=== PATIENT | male | born 1930 | race Caucasian/White ===

== ENCOUNTER 2016-03-12 12:22 | Emergency (ER) | payer MEDICARE, BC ==
[~2016-03-12 12:22] MED LIST: ASPIRIN E.C. 8181 MG PO; ATENOLOL25 MG PO; CIALIS20 MG PO; DOCUSATE SODIUM1 TA3 PO; LASIX20 M1 PO; OMEPRAZOLE D/R20 MG PO
[2016-03-12] MEDS ORDERED: NORCO 325 MG-51 TA1 PO (14:05)
== END 2016-03-12 14:20 | disposition home or self-care (01) ==
LOC: ED 12:22
DX: M25.561 Pain in right knee (principal); M54.5 Low back pain; M19.90 Unspecified osteoarthritis, unspecified site

== ENCOUNTER 2016-06-25 10:28 | Emergency (ER) | payer MEDICARE, BC ==
[~2016-06-25] VITALS: Ht 170.2 cm; Wt 77.3 kg
[~2016-06-25 10:28] MED LIST changes: +NORCO 325 MG-51 TA1 PO
[2016-06-25 12:14] VITALS: BP 127/67
== END 2016-06-25 12:15 | disposition home or self-care (01) ==
LOC: ED 10:28
DX: R55 Syncope and collapse (principal); R51 Headache; R11.0 Nausea; I10 Essential (primary) hypertension; Z85.850 Personal history of malignant neoplasm of thyroid; Z85.3 Personal history of malignant neoplasm of breast; Z79.82 Long term (current) use of aspirin; E11.8 Type 2 diabetes mellitus with unspecified complications; Z79.84 Long term (current) use of oral hypoglycemic drugs; E03.9 Hypothyroidism, unspecified; E78.5 Hyperlipidemia, unspecified

== ENCOUNTER → 2016-09-20 | Outpatient (CLI) | payer MEDICARE, BC | LOC: RAD 19:09 | DX: M25.571 Pain in right ankle and joints of right foot (principal); R07.81 Pleurodynia; W18.30XA Fall on same level, unspecified, initial encounter ==

== ENCOUNTER 2017-03-06 10:43 | Emergency (ER) | payer MEDICARE, BC ==
[~2017-03-06] VITALS: Ht 167.6 cm; Wt 72.7 kg
[2017-03-06 11:19] LABS: EOS # 0.2 (0.04-0.40); EOS % 2.7 % (0.0-4.0); LYMPH# 1.1 (1.50-4.00); MEAN CELL VOLUME 89 fl (78-100); MEAN CORPUSCULAR HEMOGLOBIN 28 pg (27-31); MEAN CORPUSCULAR HGB CONC 32 g/dL (33-37); MEAN PLATELET VOLUME 9.2 fl (7.4-10.4); MONO # 0.3 (0.20-0.80); NEU # 4.5 (1.40-6.50); PLATELET COUNT 307 K/mm3 (130-400); RED CELL DISTRIBUTION WIDTH 16.4 % (11.5-14.5)
[2017-03-06 11:30] LABS: ALBUMIN 4.4 g/dL (3.5-5.0); BUN/CREATININE RATIO 21.9 (6.0-26.0); CALCIUM 8.8 mg/dL (8.4-10.2); POTASSIUM 3.5 mmol/L (3.6-5.0); TOTAL BILIRUBIN 0.4 mg/dL (0.2-1.3); TOTAL PROTEIN 8.3 g/dL (6.3-8.2)
[2017-03-06 11:32] LABS: URINE COLOR BLOODY
[2017-03-06 11:33] LABS: URINE APPEARANCE CLOUDY; URINE BILIRUBIN NEGATIVE (NEGATIVE); URINE BLOOD 250 ery/uL (NEGATIVE); URINE GLUCOSE NEGATIVE (NEGATIVE); URINE KETONE NEGATIVE (NEGATIVE); URINE LEUKOCYTE ESTERASE NEGATIVE (NEGATIVE); URINE NITRATE NEGATIVE (NEGATIVE); URINE PROTEIN(semi-quant) 2+ mg/dL (NEGATIVE); URINE UROBILINOGEN NORMAL (NORMAL)
[2017-03-06] MEDS ORDERED: POTASSIUM CHLO10 ME7 PO ×2 (12:14→12:17)
[2017-03-06] MEDS ORDERED: CIPRO250 M1 PO (12:15)
[2017-03-06] MEDS ORDERED: POTASSIUM CHLO10 ME6 PO (12:16)
[2017-03-06 12:39] VITALS: BP 103/69
== END 2017-03-06 12:30 | disposition home or self-care (01) ==
LOC: ED 10:43
PROVIDERS: Family Medicine
DX: R31.9 Hematuria, unspecified (principal); E87.6 Hypokalemia; I10 Essential (primary) hypertension; Z85.038 Personal history of other malignant neoplasm of large intestine; Z90.49 Acquired absence of other specified parts of digestive tract

== ENCOUNTER 2017-10-19 05:37 | Emergency (ER) | payer MEDICARE, BC ==
[~2017-10-19] VITALS: Ht 172.7 cm; Wt 72.3 kg
[~2017-10-19 05:37] MED LIST changes: +CIPRO250 M1 PO; +POTASSIUM CHLO10 ME6 PO; +POTASSIUM CHLO10 ME7 PO
[2017-10-19 06:56] LABS: HEMATOCRIT 35.2 % (42.0-52.0); HEMOGLOBIN 11.6 g/dL (13.5-18.0); MEAN CELL VOLUME 88 fl (78-100); MEAN CORPUSCULAR HEMOGLOBIN 29 pg (27-31); MEAN CORPUSCULAR HGB CONC 33 g/dL (33-37); MEAN PLATELET VOLUME 9.2 fl (7.4-10.4); PLATELET COUNT 350 K/mm3 (130-400); RED CELL DISTRIBUTION WIDTH 15.8 % (11.5-14.5); WHITE BLOOD COUNT 11.7 K/mm3 (4.8-10.8)
[2017-10-19 07:02] LABS: LYMPHOCYTE 6 % (20-51); MONOCYTE 2 % (3-10); NEUTROPHILS 92 % (42-75)
[2017-10-19 07:03] LABS: ALBUMIN 3.9 g/dL (3.5-5.0); POTASSIUM 4.2 mmol/L (3.6-5.0); TOTAL BILIRUBIN 0.6 mg/dL (0.2-1.3); TOTAL PROTEIN 7.1 g/dL (6.3-8.2)
[2017-10-19 07:40] LABS: URINE COLOR YELLOW
[2017-10-19 07:41] LABS: URINE APPEARANCE CLOUDY; URINE BILIRUBIN NEGATIVE (NEGATIVE); URINE BLOOD 250 ery/uL (NEGATIVE); URINE GLUCOSE NEGATIVE (NEGATIVE); URINE KETONE 2+ (NEGATIVE); URINE LEUKOCYTE ESTERASE TRACE (NEGATIVE); URINE MUCUS PRESENT (NOT PRESENT); URINE NITRATE NEGATIVE (NEGATIVE); URINE PROTEIN(semi-quant) 2+ mg/dL (NEGATIVE); URINE UROBILINOGEN NORMAL (NORMAL)
[2017-10-19] MEDS ORDERED: EXCEDRIN MIGRA1 EACH PO (09:08)
[2017-10-19] MEDS ORDERED: ALUMINUM & MAG355 ML PO (09:08)
[2017-10-19] MEDS ORDERED: MULTIVITAMIN1 SGL PO (09:09)
[2017-10-19] MEDS ORDERED: OXYCODONE PO (09:11)
[2017-10-19 09:45] VITALS: BP 150/97
== END 2017-10-19 09:46 | disposition short-term general hospital (02) ==
LOC: ED 05:37
PROVIDERS: Nurse Practitioner Family
DX: K44.9 Diaphragmatic hernia without obstruction or gangrene (principal); R10.13 Epigastric pain; R11.2 Nausea with vomiting, unspecified; Z93.3 Colostomy status; I10 Essential (primary) hypertension; Z85.038 Personal history of other malignant neoplasm of large intestine; Z85.830 Personal history of malignant neoplasm of bone; Z79.82 Long term (current) use of aspirin; Z79.899 Other long term (current) drug therapy
CPT/HCPCS: J0696; J2270; J2405; J3010; J7030; Q9967